=== PATIENT | female | born 1960 | race Caucasian/White ===

== ENCOUNTER → 2017-11-25 | Outpatient (CLI) | payer OTHER ==
[~2017-11-25] MED LIST: ATOR10TA24 PO; IBUP1TAB84 PO; IBUP200C74 PO
--- NOTE | 2017-11-25 15:09 | RADIOLOGY IMAGING REPORT ---
FACILITY: [facility] PATIENT NAME: ANTIONETTE MIJARES : [id number] MR: [id number] V: [id number] EXAM DATE: [id number] ORDERING PHYSICIAN: MACO RODAS TECHNOLOGIST: Chana Dennis PROCEDURE:LEFT DIGITAL DIAGNOSTIC MAMMOGRAM WITH CAD ASSISTED INTERPRETATION & 3D TOMOSYNTHESIS COMPARISON:Prior mammograms 04/01/17. INDICATIONS:History of Left Breast Cancer FINDINGS: Moderately heterogeneous fibroglandular tissue is seen throughout the Left breast. The previously noted spiculated mass in the 6 o'clock position of the Left breast in the posterior 1/3 has been surgically removed. There are surgical clips in the operative site. A biopsy clip is also noted projecting over a Left axillary lymph node. There is no demonstration of malignant appearing mass, malignant appearing calcifications or other secondary sign of malignancy in either breast. DIAGNOSTIC CATEGORY 3--PROBABLY BENIGN FINDING. RECOMMENDATIONS: SIX MONTH FOLLOW-UP DIAGNOSTIC MAMMOGRAM: BILATERAL BREASTS. IMPRESSION: BIRADS 3: Probably benign finding. Postoperative changes are seen in the 6 o'clock position of the Left breast. A 6 month follow-up bilateral mammogram is recommended at which time the patient will be due for her annual mammogram. Dictated by: Kailey Henriquez M.D. on 11/25/2017 at 10:12 Transcribed by: FLORENTINO on 11/25/2017 at 10:52 Approved by: Kailey Henriquez M.D. on 11/25/2017 at 15:07 [facility]
== END ==
LOC: MAMO 00:58
PROVIDERS: ATTEND Physician Assistant
DX: C50.512 Malignant neoplasm of lower-outer quadrant of left female breast (principal)
CPT/HCPCS: 77061; 77065